=== PATIENT | male | born 1965 | race Caucasian/White ===

== ENCOUNTER 2019-11-30 13:23 | Outpatient (REF) | payer OTHER, SELFPAY ==
[2019-11-30 16:45] LABS: MANUAL DIFF FLAG NO
[2019-11-30 16:49] LABS: Basophils Percent Auto 0.4 % (0-2); Eosinophils Absolute Auto 0.4 X10*3/uL (0.0-0.4); Eosinophils Percent Auto 5.4 % (0-4); Hematocrit 44.2 % (42-52); Hemoglobin 14.7 g/dl (14.0-18.0); Imm Gran Abs Auto 0.02 X10*3/uL (0.00-0.03); Imm Gran Pct Auto 0.3 % (0.0-0.4); Lymphocytes Absolute Auto 3.2 X10*3/uL (1.2-4.9); Lymphocytes Percent Auto 47.4 % (20-40); Mean Corpuscular HGB Conc 33.3 g/dl (31.0-36.0); Mean Corpuscular Hemoglobin 29.5 pg (27.0-33.0); Mean Corpuscular Volume 88.6 fL (80-98); Mean Platelet Volume 11.2 fL (9.4-12.4); Monocytes Absolute Auto 0.5 X10*3/uL (0.1-1.2); Monocytes Percent Auto 7.7 % (2-11); Neutrophils Absolute Auto 2.6 X10*3/uL (2.0-8.3); Neutrophils Percent Auto 38.8 % (45-73); Platelet Count 264 X10*3/uL (160-400); Red Blood Count 4.99 X10*6/uL (4.60-5.80); Red Cell Distribution Width 14.3 % (11.0-16.0); White Blood Count 6.8 X10*3/uL (4.8-10.8)
[2019-11-30 17:14] LABS: Alanine Aminotransferase 20 U/L (0-40); Albumin Level 4.4 g/dL (3.5-5.0); Alkaline Phosphatase 53 U/L (39-117); Anion Gap 13 (12-20); Aspartate Amino Transferase 25 U/L (5-37); Bilirubin Total 0.4 mg/dL (0.0-1.0); Blood Urea Nitrogen 10 mg/dL (9-16); C Reactive Protein 0.03 mg/dL (< or = 0.50); Calcium 9.3 mg/dL (8.4-10.2); Carbon Dioxide 28 mmol/L (22-29); Chloride 100 mmol/L (96-108); Estimated Glomerular Filt Rate > 60; Glucose Random 91 mg/dL (60-115); Potassium 4.5 mmol/l (3.3-5.1); Sodium 136 mmol/L (135-145); Total Protein 7.1 g/dL (6.5-8.0)
[2019-11-30 17:57] LABS: Erythrocyte Sedimentation Rate 2 MM/HR (0-15)
== END 2019-11-30 13:24 | disposition home or self-care (01) ==
LOC: HO.HMGCLDS 13:23
PROVIDERS: PCP Internal Medicine; Visit Provider Internal Medicine
DX: A69.20 Lyme disease, unspecified (principal)
CPT/HCPCS: 36415; 80053; 85025; 85652; 86140; 86618

== ENCOUNTER 2020-01-30 12:30 | Outpatient (REF) | payer OTHER, SELFPAY ==
[2020-01-30 13:51] LABS: MANUAL DIFF FLAG NO
[2020-01-30 13:56] LABS: Basophils Percent Auto 0.2 % (0-2); Eosinophils Absolute Auto 0.2 X10*3/uL (0.0-0.4); Eosinophils Percent Auto 3.9 % (0-4); Hematocrit 42.8 % (42-52); Hemoglobin 14.6 g/dl (14.0-18.0); Lymphocytes Absolute Auto 2.3 X10*3/uL (1.2-4.9); Lymphocytes Percent Auto 50.9 % (20-40); Mean Corpuscular HGB Conc 34.1 g/dl (31.0-36.0); Mean Corpuscular Hemoglobin 29.4 pg (27.0-33.0); Mean Corpuscular Volume 86.3 fL (80-98); Mean Platelet Volume 10.5 fL (9.4-12.4); Monocytes Absolute Auto 0.5 X10*3/uL (0.1-1.2); Monocytes Percent Auto 10.4 % (2-11); Neutrophils Absolute Auto 1.6 X10*3/uL (2.0-8.3); Neutrophils Percent Auto 34.6 % (45-73); Platelet Count 256 X10*3/uL (160-400); Red Blood Count 4.96 X10*6/uL (4.60-5.80); Red Cell Distribution Width 13.3 % (11.0-16.0); White Blood Count 4.6 X10*3/uL (4.8-10.8)
[2020-01-30 14:30] LABS: Alanine Aminotransferase 22 U/L (0-40); Albumin Level 4.4 g/dL (3.5-5.0); Alkaline Phosphatase 43 U/L (39-117); Anion Gap 10 (12-20); Aspartate Amino Transferase 25 U/L (5-37); Bilirubin Total 0.3 mg/dL (0.0-1.0); Blood Urea Nitrogen 4 mg/dL (9-16); C Reactive Protein 2.18 mg/dL (< or = 0.50); Calcium 9.1 mg/dL (8.4-10.2); Carbon Dioxide 30 mmol/L (22-29); Chloride 98 mmol/L (96-108); Estimated Glomerular Filt Rate > 60; Glucose Random 71 mg/dL (60-115); Potassium 4.7 mmol/l (3.3-5.1); Sodium 133 mmol/L (135-145)
[2020-01-30 15:07] LABS: Erythrocyte Sedimentation Rate 10 MM/HR (0-15)
[2020-01-31 09:22] LABS: Lyme Blot 7.24 index
[2020-01-31 23:23] LABS: IgG P93 Abs NON-REACTIVE; Lyme IgG Line Blot Interp. NEGATIVE (NEGATIVE)
== END 2020-01-30 12:31 | disposition home or self-care (01) ==
LOC: HO.HMGCLDS 12:30
PROVIDERS: PCP Internal Medicine; Visit Provider Internal Medicine
DX: M25.50 Pain in unspecified joint (principal); A69.20 Lyme disease, unspecified
CPT/HCPCS: 36415; 80053; 85025; 85652; 86140; 86618; 87040

== ENCOUNTER 2020-05-29 12:01 | Outpatient (REF) | payer OTHER, SELFPAY ==
[2020-05-29 13:59] LABS: MANUAL DIFF FLAG NO
[2020-05-29 14:08] LABS: Basophils Percent Auto 0.3 % (0-2); Eosinophils Absolute Auto 0.2 X10*3/uL (0.0-0.4); Eosinophils Percent Auto 3.7 % (0-4); Hematocrit 46.4 % (42-52); Hemoglobin 15.4 g/dl (14.0-18.0); Imm Gran Abs Auto 0.01 X10*3/uL (0.00-0.03); Imm Gran Pct Auto 0.2 % (0.0-0.4); Lymphocytes Absolute Auto 2.7 X10*3/uL (1.2-4.9); Lymphocytes Percent Auto 43.3 % (20-40); Mean Corpuscular HGB Conc 33.2 g/dl (31.0-36.0); Mean Corpuscular Hemoglobin 29.1 pg (27.0-33.0); Mean Corpuscular Volume 87.7 fL (80-98); Mean Platelet Volume 10.9 fL (9.4-12.4); Monocytes Absolute Auto 0.5 X10*3/uL (0.1-1.2); Monocytes Percent Auto 8.4 % (2-11); Neutrophils Absolute Auto 2.7 X10*3/uL (2.0-8.3); Neutrophils Percent Auto 44.1 % (45-73); Platelet Count 257 X10*3/uL (160-400); Red Blood Count 5.29 X10*6/uL (4.60-5.80); Red Cell Distribution Width 13.5 % (11.0-16.0); White Blood Count 6.2 X10*3/uL (4.8-10.8)
[2020-05-29 14:23] LABS: Alanine Aminotransferase 14 U/L (0-40); Albumin Level 4.5 g/dL (3.5-5.0); Alkaline Phosphatase 48 U/L (39-117); Anion Gap 13 (12-20); Aspartate Amino Transferase 18 U/L (5-37); Bilirubin Total 0.5 mg/dL (0.0-1.0); Blood Urea Nitrogen 12 mg/dL (9-16); C Reactive Protein 0.05 mg/dL (< or = 0.50); Calcium 9.6 mg/dL (8.4-10.2); Carbon Dioxide 30 mmol/L (22-29); Chloride 99 mmol/L (96-108); Estimated Glomerular Filt Rate > 60; Glucose Random 92 mg/dL (60-115); Potassium 4.6 mmol/L (3.3-5.1); Sodium 137 mmol/L (135-145); Total Protein 7.2 g/dL (6.5-8.0)
[2020-05-29 15:12] LABS: Erythrocyte Sedimentation Rate 2 MM/HR (0-15)
[2020-05-30 06:42] LABS: Lyme Blot 6.26 index
[2020-06-02 14:26] LABS: 18 KD (IgG) Band NON-REACTIVE; 23 KD (IgG) Band NON-REACTIVE; 23 KD (IgM) Band REACTIVE; 28 KD (IgG) Band NON-REACTIVE; 30 KD (IgG) Band NON-REACTIVE; 39 KD (IgM) Band NON-REACTIVE; 41 KD (IgM) Band REACTIVE; 45 KD (IgG) Band NON-REACTIVE; 58 KD (IgG) Band REACTIVE; 66 KD (IgG) Band NON-REACTIVE; 93 KD (IgG) Band NON-REACTIVE; Lyme IgG Blot Interp NEGATIVE (NEGATIVE); Lyme IgM Blot Interp POSITIVE (NEGATIVE)
[2020-06-02 15:41] LABS: Babesia IgG <1:64 titer (<1:64); Babesia IgM <1:20 titer (<1:20)
[2020-06-02 23:12] LABS: A. Phagocytophilum Ab IgG <1:64 (<1:64); A. Phagocytophilum Ab IgM <1:20 (<1:20); E. Chaffeensis Ab IgG <1:64 (<1:64); E. Chaffeensis Ab IgM <1:20 (<1:20)
[2020-06-05 08:51] LABS: Lyme Abs Screen POSITIVE
== END 2020-05-29 12:02 | disposition home or self-care (01) ==
LOC: HO.HMGCLDS 12:01
PROVIDERS: Visit Provider Internal Medicine Infectious Disease
DX: R76.8 Other specified abnormal immunological findings in serum (principal)
CPT/HCPCS: 36415; 80053; 85025; 85652; 86140; 86617; 86618; 86666; 86753

== ENCOUNTER 2020-10-15 14:31 | Emergency (ER) | payer OTHER, SELFPAY ==
--- NOTE | ~2020-10-15 | CT_ITS ---
EXAMINATION: CT HEAD WITHOUT CONTRAST CLINICAL INFORMATION: Diplopia. COMPARISON: None TECHNIQUE: Contiguous axial imaging was performed from the skull base to vertex without intravenous administration of contrast. This CT examination was performed using dose optimization techniques as appropriate, variously including the following: *Automated exposure control *Adjustment of mA and/or kV according to patient size (this includes techniques or standardized protocols for targeted exams where dose is matched to indication/reason for exam; i.e. extremities or head) *Use of iterative reconstruction technique DLP: 654 mGy-cm FINDINGS: There is no evidence of acute intracranial hemorrhage or territorial infarction. No abnormal mass effect or midline shift is seen. Holt to white matter differentiation is well preserved. No extra-axial fluid collections are identified. The ventricles are normal in size. There is no abnormal attenuation within the brain parenchyma. The osseous structures and soft tissues are normal. The mastoid air cells and visualized portions of the paranasal sinuses are well aerated. CT/CT head/brain wo con IMPRESSION: No acute intracranial process seen.
[2020-10-15 14:37] VITALS: BP 162/92; PULSE 68; RESP 18; TEMP 36.6; O2SAT 97; BMI 23.3
--- NOTE | 2020-10-15 14:50 | ED.GENADULT ---
HPI - General Adult General Chief complaint: General Medical Stated complaint: double vision Time Seen by Provider: 10/15/20 14:50 Source: patient Mode of arrival: ambulatory Limitations: no limitations History of Present Illness HPI narrative: Patient no significant past medical history noticed sudden onset of double visions when he opens both eyes , disappears when see with single eye, started at 09:00 yesterday it happens when he tries to raise his head up and try to look down noticed double vision no headache no fever no chills no nausea no vomiting patient had history of Lyme disease last year and was treated also patient noticed mild headache on the left side Related Data Allergies Allergy/AdvReac Type Severity Reaction Status Date / Time No Known Allergies Allergy Unverified 11/08/19 18:39 [No Known Allergies*] Review of Systems Review of Systems: Yes all other systems are reviewed and are negative [facility] Social History Social History Advance Directives: No Advance Directives Information Provided: No Physical Exam Vital Signs: Vital Signs: Last Vital Signs Temp 98 F 10/15/20 14:37 Pulse 58 10/15/20 16:08 Resp 16 10/15/20 16:08 BP 147/88 H 10/15/20 16:08 Pulse Ox 97 10/15/20 16:08 Body Mass Index 23.3 Appearance: Alert. Oriented X3. No acute distress. Eyes: PERRLA, No Nystagmus fundus normal no papilledema, extraocular muscle intact ENT: Pharynx normal. Oral Mucosa moist Neck: Normal inspection. Neck supple. CVS: Normal heart rate and rhythm. Pulses normal. Respiratory: No respiratory distress. Equal air entry bilateral, no wheezing/rales/rhonchi Abdomen: Soft and nontender. Bowel sounds are present, no mass palpable, no CVA tenderness Skin: Skin warm and dry. Normal skin color. Normal skin turgor. Extremities: No lower extremity edema. No calf tenderness Neuro: Oriented X 3. No motor deficit. 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 Patient does have a history of Lyme disease. Case discussed with Dr. Brooks will see him in the outpatient Discharge Plan Discharge Clinical Impression: Diplopia Patient Disposition: Home, Self-Care Instructions: Diplopia (ED) Additional Instructions: Follow-up with eye clinic manager as advised likely you have eye muscle weakness Referrals: Dave Brooks [Physician] - 2 days Interventions: ED Discharge Assessment Last Done: 10/15/20 16:51
[2020-10-15 16:08] VITALS: BP 147/88; PULSE 58; RESP 16; O2SAT 97
--- NOTE | 2020-10-15 16:09 | PC.NURSE ---
pt reports double vision in lower field of vision. he states when he closes one eye the problem stops. Denies dizziness, no neausea. he has no other neuro defiits. He has no limb ataxia or drift. face is symmetrical. moving all extremities well.
== END 2020-10-15 17:00 | disposition home or self-care (01) ==
PROVIDERS: Emergency Provider Internal Medicine; PCP Internal Medicine
DX: H53.2 Diplopia (principal)
CPT/HCPCS: 70450; 99284

== ENCOUNTER 2020-11-03 16:15 | Outpatient (REF) | payer OTHER, SELFPAY ==
--- NOTE | ~2020-11-03 | MR_ITS ---
EXAMINATION: MR ANGIOGRAPHY HEAD CLINICAL INFORMATION: Cranial nerve disorder. Assess for aneurysm compressing the right 4th nerve. COMPARISON: CT scan of the head 10/15/2020. TECHNIQUE: 3D time of flight MR angiography of the intracranial vasculature was obtained. Reformatted images were generated at the technologist workstation and source images were reviewed along with rotating MIPs. FINDINGS: In the anterior circulation, the distal internal carotid arteries within the neck appear normal. The intracranial internal carotid arteries and their bifurcations appear normal. The middle and anterior cerebral arteries bilaterally demonstrate normal caliber with no evidence of focal stenosis, aneurysm or vascular malformation. The anterior communicating artery is normal. In the posterior circulation, the left vertebral artery is dominant. The vertebral arteries intradurally have normal caliber. The basilar artery appears normal. The right posterior cerebral artery has a thinner caliber compared to the left with slight irregularity in it's mid P2 section. The vessel is patent. MR/MR angio head wo con IMPRESSION: 1. There are no vascular malformations or aneurysms intracranially. The right posterior cerebral artery has a thinner caliber compared to the left with slight irregularity.
== END 2020-11-03 16:16 | disposition home or self-care (01) ==
LOC: HO.MRI 16:15
PROVIDERS: PCP Internal Medicine; Visit Provider Psychiatry & Neurology Neurology
DX: H53.2 Diplopia (principal); G52.9 Cranial nerve disorder, unspecified
CPT/HCPCS: 70544

== ENCOUNTER 2020-11-19 13:46 | Outpatient (REF) | payer OTHER, SELFPAY ==
[2020-11-19 16:39] LABS: MANUAL DIFF FLAG NO
[2020-11-19 16:45] LABS: Basophils Percent Auto 0.3 % (0-2); Eosinophils Absolute Auto 0.2 X10*3/uL (0.0-0.4); Eosinophils Percent Auto 2.6 % (0-4); Hematocrit 45.5 % (42-52); Hemoglobin 15.4 g/dl (14.0-18.0); Imm Gran Abs Auto 0.01 X10*3/uL (0.00-0.03); Imm Gran Pct Auto 0.2 % (0.0-0.4); Lymphocytes Absolute Auto 2.9 X10*3/uL (1.2-4.9); Lymphocytes Percent Auto 46.7 % (20-40); Mean Corpuscular HGB Conc 33.8 g/dl (31.0-36.0); Mean Corpuscular Hemoglobin 29.5 pg (27.0-33.0); Mean Corpuscular Volume 87.2 fL (80-98); Mean Platelet Volume 10.9 fL (9.4-12.4); Monocytes Absolute Auto 0.6 X10*3/uL (0.1-1.2); Monocytes Percent Auto 9.4 % (2-11); Neutrophils Absolute Auto 2.6 X10*3/uL (2.0-8.3); Neutrophils Percent Auto 40.8 % (45-73); Platelet Count 250 X10*3/uL (160-400); Red Blood Count 5.22 X10*6/uL (4.60-5.80); Red Cell Distribution Width 13.6 % (11.0-16.0); White Blood Count 6.3 X10*3/uL (4.8-10.8)
[2020-11-19 16:53] LABS: Anion Gap 13 (12-20); Blood Urea Nitrogen 12 mg/dL (9-16); Calcium 9.7 mg/dL (8.4-10.2); Carbon Dioxide 25 mmol/L (22-29); Chloride 103 mmol/L (96-108); Estimated Glomerular Filt Rate > 60; Potassium 4.4 mmol/L (3.3-5.1); Sodium 137 mmol/L (135-145)
[2020-11-19 16:59] LABS: Estimated Average Glucose 105 mg/dL; Hemoglobin A1c % 5.3 %
[2020-11-19 17:53] LABS: Erythrocyte Sedimentation Rate 2 MM/HR (0-15)
[2020-11-26 00:01] LABS: Acetylcholine Receptor Binding <0.30 nmol/L
[2020-12-04 22:06] LABS: Acetylcholine Recep Modulating 19
== END 2020-11-19 13:47 | disposition home or self-care (01) ==
LOC: HO.HMGCLDS 13:46
PROVIDERS: PCP Internal Medicine; Visit Provider Psychiatry & Neurology Neurology
DX: H53.2 Diplopia (principal)
CPT/HCPCS: 36415; 80051; 82310; 82565; 83036; 83519; 84520; 85025; 85652

== ENCOUNTER 2020-12-23 09:12 | Outpatient (REF) | payer OTHER, SELFPAY ==
[2020-12-23 11:25] LABS: MANUAL DIFF FLAG NO
[2020-12-23 11:36] LABS: Basophils Percent Auto 0.3 % (0-2); Eosinophils Absolute Auto 0.4 X10*3/uL (0.0-0.4); Eosinophils Percent Auto 6.8 % (0-4); Hematocrit 46.6 % (42.0-52.0); Hemoglobin 15.5 g/dl (14.0-18.0); Imm Gran Abs Auto 0.01 X10*3/uL (0.00-0.03); Imm Gran Pct Auto 0.2 % (0.0-0.4); Lymphocytes Absolute Auto 3.2 X10*3/uL (1.2-4.9); Lymphocytes Percent Auto 50.6 % (20-40); Mean Corpuscular HGB Conc 33.3 g/dl (31.0-36.0); Mean Corpuscular Hemoglobin 29.3 pg (27.0-33.0); Mean Corpuscular Volume 88.1 fL (80.0-98.0); Mean Platelet Volume 10.9 fL (9.4-12.4); Monocytes Absolute Auto 0.5 X10*3/uL (0.1-1.2); Monocytes Percent Auto 8.5 % (2-11); Neutrophils Absolute Auto 2.14 x10*3/uL (2.0-8.3); Neutrophils Percent Auto 33.6 % (45-73); Platelet Count 244 X10*3/uL (160-400); Red Blood Count 5.29 X10*6/uL (4.60-5.80); Red Cell Distribution Width 13.9 % (11.0-16.0); White Blood Count 6.4 X10*3/uL (4.8-10.8)
[2020-12-23 11:56] LABS: Alanine Aminotransferase 19 U/L (0-40); Albumin Level 4.2 g/dL (3.5-5.0); Alkaline Phosphatase 53 U/L (39-117); Anion Gap 8 (12-20); Aspartate Amino Transferase 23 U/L (5-37); Bilirubin Total 0.5 mg/dL (0.0-1.0); Blood Urea Nitrogen 10 mg/dL (9-16); Calcium 9.1 mg/dL (8.4-10.2); Carbon Dioxide 30 mmol/L (22-29); Chloride 106 mmol/L (96-108); Cholesterol 199 mg/dL; Estimated Glomerular Filt Rate > 60; Glucose Fasting 96 mg/dL (60-99); HDL Cholesterol 34 mg/dL; LDL Cholesterol Calculated 147 mg/dl; Potassium 4.6 mmol/L (3.3-5.1); Sodium 139 mmol/L (135-145); Total Protein 6.7 g/dL (6.5-8.0); Triglycerides 93 mg/dL
[2020-12-23 12:07] LABS: Thyroid Stimulating Hormone 2.31 uIU/mL (0.32-4.0); Vitamin D 25-OH Total 31.1 ng/mL (>30)
[2020-12-23 12:39] LABS: PSA,Total (Free>4and<10) 2.56 ng/mL (0.00-4.00)
== END 2020-12-23 09:13 | disposition home or self-care (01) ==
LOC: HO.HMGCLDS 09:12
PROVIDERS: PCP Internal Medicine; Visit Provider Internal Medicine
DX: Z00.00 Encounter for general adult medical examination without abnormal findings (principal); Z12.5 Encounter for screening for malignant neoplasm of prostate
CPT/HCPCS: 36415; 80053; 80061; 82306; 84153; 84443; 85025

== ENCOUNTER 2021-12-23 08:31 | Outpatient (REF) | payer OTHER, SELFPAY ==
[2021-12-23 12:01] LABS: Basophils Percent Auto 0.5 % (0-2); Eosinophils Absolute Auto 0.2 X10*3/uL (0.0-0.4); Eosinophils Percent Auto 3.2 % (0-4); Hematocrit 43.5 % (42.0-52.0); Hemoglobin 14.8 g/dl (14.0-18.0); Imm Gran Abs Auto 0.01 X10*3/uL (0.00-0.03); Imm Gran Pct Auto 0.2 % (0.0-0.4); Lymphocytes Absolute Auto 2.9 X10*3/uL (1.2-4.9); Lymphocytes Percent Auto 46.8 % (20-40); MANUAL DIFF FLAG NO; Mean Corpuscular Volume 88.1 fL (80.0-98.0); Mean Platelet Volume 10.8 fL (9.4-12.4); Monocytes Absolute Auto 0.5 X10*3/uL (0.1-1.2); Monocytes Percent Auto 7.5 % (2-11); Neutrophils Absolute Auto 2.6 x10*3/uL (2.0-8.3); Neutrophils Percent Auto 41.8 % (45-73); Platelet Count 270 X10*3/uL (160-400); Red Blood Count 4.94 X10*6/uL (4.60-5.80); Red Cell Distribution Width 13.9 % (11.0-16.0); White Blood Count 6.2 X10*3/uL (4.8-10.8)
[2021-12-23 12:03] LABS: Appearance Urine Clear; Color Urine Yellow; Glucose Urine UA Negative (Negative); Leukocyte Esterase Urine Negative (Negative); Nitrite Urine Negative (Negative); Specific Gravity - Urine <= 1.005 (1.005-1.025); Urine Blood Negative (Negative); Urine Ketones Negative (Negative); Urine Protein Negative (Neg-Trace)
[2021-12-23 12:09] LABS: Bacteria Urine None Seen (None Seen); Hyaline Casts Urine 0-2 /LPF (0-2); RBC Urine 0-2 /HPF (0-2); Squamous Epithelial Cell Urine 0-2 /HPF (0-2); WBC Urine 0-5 /HPF (0-5)
[2021-12-23 12:32] LABS: Alanine Aminotransferase 16 U/L (0-40); Albumin Level 4.2 g/dL (3.5-5.0); Alkaline Phosphatase 47 U/L (39-117); Anion Gap 13 (12-20); Aspartate Amino Transferase 19 U/L (5-37); Bilirubin Total 0.3 mg/dL (0.0-1.0); Blood Urea Nitrogen 11 mg/dL (9-16); Carbon Dioxide 27 mmol/L (22-29); Chloride 103 mmol/L (96-108); Cholesterol 213 mg/dL; Estimated Glomerular Filt Rate > 60; Glucose Fasting 98 mg/dL (60-99); HDL Cholesterol 47 mg/dL; LDL Cholesterol Calculated 155 mg/dl; Potassium 4.1 mmol/L (3.3-5.1); Sodium 139 mmol/L (135-145); Total Protein 6.7 g/dL (6.5-8.0); Triglycerides 57 mg/dL
[2021-12-23 12:42] LABS: PSA,Total (Free>4and<10) 3.31 ng/mL (0.00-4.00); Thyroid Stimulating Hormone 2.49 uIU/mL (0.32-4.0); Vitamin D 25-OH Total 35.8 ng/mL (>30)
== END 2021-12-23 08:32 | disposition home or self-care (01) ==
LOC: HO.HMGCLDS 08:31
PROVIDERS: PCP Internal Medicine; Visit Provider Internal Medicine
DX: Z00.00 Encounter for general adult medical examination without abnormal findings (principal); Z12.5 Encounter for screening for malignant neoplasm of prostate; M25.562 Pain in left knee
CPT/HCPCS: 36415; 80053; 80061; 81001; 82306; 84153; 84443; 85025

== ENCOUNTER 2022-01-20 08:09 | Outpatient (REF) | payer OTHER, SELFPAY ==
--- NOTE | ~2022-01-20 | XR_ITS ---
EXAMINATION: XR KNEE, STANDING BILATERAL XR KNEE, LEFT CLINICAL INFORMATION: Left knee pain. COMPARISON: None. TECHNIQUE: Standing AP view of the bilateral knees, lateral and patellar views of the left knee. FINDINGS: Osseous mineralization is normal. Medial and lateral knee joint spaces appear to be preserved. No evidence of subarticular sclerosis or cystic changes. Left patellofemoral joint space appears to be preserved. No evidence of left suprapatellar joint effusion. No evidence of soft tissue calcifications. The bones essentially appear normal. XR/XR knee standing BI IMPRESSION: No acute or other significant osseous abnormalities are noted on the radiographs of the bilateral knees.
--- NOTE | ~2022-01-20 | XR_ITS ---
EXAMINATION: XR KNEE, STANDING BILATERAL XR KNEE, LEFT CLINICAL INFORMATION: Left knee pain. COMPARISON: None. TECHNIQUE: Standing AP view of the bilateral knees, lateral and patellar views of the left knee. FINDINGS: Osseous mineralization is normal. Medial and lateral knee joint spaces appear to be preserved. No evidence of subarticular sclerosis or cystic changes. Left patellofemoral joint space appears to be preserved. No evidence of left suprapatellar joint effusion. No evidence of soft tissue calcifications. The bones essentially appear normal. XR/XR knee LT 2V IMPRESSION: No acute or other significant osseous abnormalities are noted on the radiographs of the bilateral knees.
== END 2022-01-20 08:10 | disposition home or self-care (01) ==
LOC: HO.HOSX 08:09
PROVIDERS: Visit Provider Physician Assistant
DX: M17.12 Unilateral primary osteoarthritis, left knee (principal)
CPT/HCPCS: 73560; 73565; 99202

== ENCOUNTER 2022-02-24 14:07 | Outpatient (REF) | payer OTHER, SELFPAY ==
--- NOTE | ~2022-02-24 | XR_ITS ---
EXAMINATION: XR lumbar spine 4V min CLINICAL INFORMATION: Right-sided low back pain COMPARISON: None TECHNIQUE: Bilateral oblique, AP and lateral views of the lumbar spine with an additional coned down lateral spot view of the lumbosacral junction. FINDINGS: There is transitional lumbosacral anatomy. There are 4 nonrib-bearing lumbar type vertebral bodies. The next segment is partially sacralized on the left with a prominent transverse process that forms a pseudoarthrosis with the sacrum. Normal sagittal alignment. Mild loss of disc height and anterior osteophytosis in the lower lumbar spine. Trace loss of disc height at L4-L5 and L5-S1. Lower lumbar facet arthropathy. No pars defects. XR/XR lumbar spine 4V min IMPRESSION: Degenerative changes and transitional anatomy as described above.
== END 2022-02-24 14:08 | disposition home or self-care (01) ==
LOC: HO.HMGCX 14:07
PROVIDERS: PCP Physical Medicine & Rehabilitation; Visit Provider Student in an Organized Health Care Education/Training Program
DX: M54.50 Low back pain, unspecified (principal)
CPT/HCPCS: 72110

== ENCOUNTER 2022-04-13 14:00 | Outpatient (RCR) | payer OTHER, SELFPAY | END 2022-08-03 09:33 | disposition home or self-care (01) | LOC: HO.PTCHIC 14:00 | PROVIDERS: PCP Internal Medicine; Visit Provider Student in an Organized Health Care Education/Training Program | DX: M17.12 Unilateral primary osteoarthritis, left knee (principal); M54.50 Low back pain, unspecified | CPT/HCPCS: 97110; 97140; 97161 ==

== ENCOUNTER 2022-12-27 08:54 | Outpatient (REF) | payer OTHER, SELFPAY ==
[2022-12-27 11:17] LABS: Basophils Percent Auto 0.3 % (0-2); Eosinophils Absolute Auto 0.2 X10*3/uL (0.0-0.4); Eosinophils Percent Auto 3.2 % (0-4); Hemoglobin 15.9 g/dl (14.0-18.0); Imm Gran Abs Auto 0.01 X10*3/uL (0.00-0.03); Imm Gran Pct Auto 0.2 % (0.0-0.4); Lymphocytes Absolute Auto 2.5 X10*3/uL (1.2-4.9); Lymphocytes Percent Auto 41.2 % (20-40); MANUAL DIFF FLAG NO; Mean Corpuscular HGB Conc 33.8 g/dl (31.0-36.0); Mean Corpuscular Hemoglobin 29.9 pg (27.0-33.0); Mean Corpuscular Volume 88.3 fL (80.0-98.0); Mean Platelet Volume 10.6 fL (9.4-12.4); Monocytes Absolute Auto 0.5 X10*3/uL (0.1-1.2); Monocytes Percent Auto 8.8 % (2-11); Neutrophils Absolute Auto 2.8 x10*3/uL (2.0-8.3); Neutrophils Percent Auto 46.3 % (45-73); Platelet Count 247 X10*3/uL (160-400); Red Blood Count 5.32 X10*6/uL (4.60-5.80); Red Cell Distribution Width 13.6 % (11.0-16.0)
[2022-12-27 11:51] LABS: Alanine Aminotransferase 14 U/L (0-40); Albumin Level 4.2 g/dL (3.5-5.0); Alkaline Phosphatase 50 U/L (39-117); Anion Gap 10 (12-20); Aspartate Amino Transferase 20 U/L (5-37); Bilirubin Total 0.4 mg/dL (0.0-1.0); Blood Urea Nitrogen 12 mg/dL (9-16); Calcium 9.5 mg/dL (8.4-10.2); Carbon Dioxide 28 mmol/L (22-29); Chloride 105 mmol/L (96-108); Cholesterol 188 mg/dL (<200); Estimated Glomerular Filt Rate > 60; Glucose Fasting 96 mg/dL (60-99); HDL Cholesterol 44 mg/dL (>40); LDL Cholesterol Calculated 132 mg/dL (<100); Potassium 4.2 mmol/L (3.3-5.1); Sodium 139 mmol/L (135-145); Thyroid Stimulating Hormone 1.86 uIU/mL (0.32-4.0); Total Protein 6.9 g/dL (6.5-8.0); Triglycerides 63 mg/dL (<150)
== END 2022-12-27 08:55 | disposition home or self-care (01) ==
LOC: HO.HMGCLDS 08:54
PROVIDERS: PCP Internal Medicine; Visit Provider Internal Medicine
DX: Z00.00 Encounter for general adult medical examination without abnormal findings (principal)
CPT/HCPCS: 36415; 80053; 80061; 84443; 85025

== ENCOUNTER 2023-02-01 14:00 | Outpatient (RCR) | payer OTHER, SELFPAY | END 2023-03-04 07:18 | disposition home or self-care (01) | LOC: HO.PTCHIC 14:00 | PROVIDERS: PCP Internal Medicine; Visit Provider Internal Medicine | DX: M25.50 Pain in unspecified joint (principal) | CPT/HCPCS: 97110; 97161 ==

== ENCOUNTER 2023-04-26 14:53 | Outpatient (AMB) | payer OTHER, SELFPAY ==
--- NOTE | 2023-04-26 15:02 | A.OFFVIS_ITS ---
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 He states that he underwent repair the age of 14. Around 1979. He states he has not seen Cardiology know why. Used to go to [facility]. According to him, he is generally doing fine. No complaints like angina or shortness of breath or in fact anything cardiac sounding. He gets along okay. In 2013, he was admitted to [facility] with suspected in fact endocarditis and after that, it seems that he was transferred to [facility]. Apparently, got antibiotics for several weeks and then got better. Has not seen anyone in Cardiology for f ollow-up after that. [facility] Medical History (Updated 04/26/23 @ 16:10 by Doc Krause MD) VSD (ventricular septal defect) Surgical History (Updated 04/26/23 @ 15:16 by Doc Krause MD) S/P TOF (tetralogy of Fallot) repair History of open heart surgery Family History (Updated 04/26/23 @ 15:05 by Kaley Galan) Mother Heart attack Father No problems noted. Social History Patient Tobacco Use Status: Never used Tobacco Current occupational status: employed Current occupation: self employed, rt hand Review of Systems Const Denies chills, Denies daytime sleepiness, Denies fatigue, Denies fever(s), Denies frequent falls, Denies night sweats, Denies snoring, Denies weakness, Denies weight gain and Denies weight loss Eyes Denies loss of vision ENT Denies dizziness and Denies hearing loss Card Denies chest pain, Denies chest pain with activity, Denies syncope, Denies rapid heart rate, Denies edema, Denies claudication, Denies leg edema, Denies lightheadedness, Denies palpitations, Denies dyspnea, Denies dyspnea on exertion and Denies orthopnea Resp Denies cough, Denies excessive phlegm production, Denies dyspnea, Denies dyspnea on exertion, Denies snoring and Denies wheezing GI Denies abdominal pain, Denies hematochezia, Denies change in bowel habits, Denies change in stool character, Denies heartburn, Denies nausea and Denies vomiting Denies hematuria, Denies dysuria and Denies urinary frequency Musc Denies arthralgias, Denies muscle weakness, Denies numbness and Denies tingling Skin/Breast Denies nail changes and Denies rash Neuro Denies Abnormal speech present, Denies dizziness, Denies syncope, Denies frequent falls, Denies loss of vision, Denies memory loss, Denies numbness, Denies tingling and Denies weakness Psych Denies depression and Denies memory loss Endo Denies fatigue and Denies palpitations Aller/Immun Denies wheezing Physical Exam Vital Signs: Last Vital Signs Pulse 59 04/26/23 15:04 BP 126/96 H 04/26/23 15:04 BMI result Body Mass Index 24.1 Const General: comfortable and no acute distress Orientation/consciousness: patient oriented x3 HEENT Other: Unremarkable Head: Yes normal to inspection Neck Neck: Yes normal visual inspection Chest Chest palpation & inspection: normal inspection of the chest Resp Auscultation: clear to auscultation bilaterally Cardio Palpation: normal PMI Heart sounds: S1 normal heart sound present, S2 normal heart sound present, no gallops, Murmur heart sound present systolic III/ and at the left sternal border and no rubs GI Palpation (GI): Soft to palpation Back/Spine/Pelvis Other: unremarkable Skin General skin exam: no rashes or lesions noted Neuro General: patient oriented x3 Speech: No Abnormal speech present Extrem General: Yes normal to inspection Psych Mental Status: mental status grossly normal Office Procedures EKG Details: EKG with sinus bradycardia at 59/Min; ND prolongation to 220 millisecond; right bundle-branch block pattern. [id number]-[id number], Complete Assessment & Plan Assessment & Plan (1) S/P TOF (tetralogy of Fallot) repair: Code(s): Z87.74 - Personal history of (corrected) congenital malformations of heart and circulatory system (2) VSD (ventricular septal defect): Code(s): Q21.0 - Ventricular septal defect Plan History of corrected tetralogy of Fallot, residual ventricular septal defect; endocarditis in 2013. Will need to get records from [facility]. We will repeat his echocardiogram, looking for any pulmonary valve regurgitation and other abnormalities. Otherwise, in fact endocarditis prophylaxis before any dental procedures. Follow-up in a few weeks' time. Also advised him that he should see somebody in adult Congenital heart Disease from [facility] regularly. Orders: Orders CA echo transthoracic complete Today I27.20 - Pulmonary hypertension, unspecified, Q21.0 - Ventricular septal defect, Z87.74 - Personal history of (corrected) congenital malformations of heart and circulatory system Coding Level of Care Code New Pt Level 3 (05556) Diagnoses S/P TOF (tetralogy of Fallot) repair Z87.74 VSD (ventricular septal defect) Q21.0 CPT Codes EKG - CPT: 48772-[id number], Complete ([id number])
[2023-04-26 15:04] VITALS: BP 126/96; PULSE 59; BMI 24.1
== END 2023-04-26 15:33 | disposition home or self-care (01) ==
PROVIDERS: PCP Internal Medicine; Visit Provider Internal Medicine
DX: Z87.74 Personal history of (corrected) congenital malformations of heart and circulatory system (principal); Q21.0 Ventricular septal defect
CPT/HCPCS: 93010; 99203

== ENCOUNTER → 2023-04-26 14:53 | Outpatient (BNVA) | payer OTHER, SELFPAY | PROVIDERS: PCP Internal Medicine; Visit Provider Internal Medicine | DX: Q21.0 Ventricular septal defect (principal); Z87.74 Personal history of (corrected) congenital malformations of heart and circulatory system | CPT/HCPCS: 93005; 99202 ==

== ENCOUNTER → 2023-05-18 13:50 | Outpatient (REF) | payer OTHER, SELFPAY ==
--- NOTE | 2023-05-18 13:53 | CA_ITS ---
Transthoracic Echocardiogram Patient (Last, First, Middle): Faraz Mcrae, Gender: Male Date of : 1965 Age: 57 Procedure Date: 05/18/2023 Procedure Type: Transthoracic Echocardiogram Location: OP Height: 165.1 cm Weight: 63.5 kg BSA: 1.70 m2 Heart Rate: 55 bpm BP: 128 / 84 mmHg Mower Operator: HEATHER Referring MD: Doc Krause MD Metal Model Builder: Omar Lubin MD Symptoms: Z87.74 - Personal history of (corrected) congenital malformations of hea... Study Quality: Adequate ECG Rhythm: Bradycardia Conclusions: - 1. Normal LV ejection fraction of 60 65% 2. Upper limits of normal RV size with paao-rj-wvtdoxjz RV systolic dysfunction 3. Xafv-ky-mbnagqnl pulmonary regurgitation with mild pulmonic stenosis with peak gradient of 20 mmHg 4. Mild tricuspid regurgitation with upper limits of normal RV systolic pressure 5. No gross pericardial effusion Findings Left Ventricle Normal left ventricular size, thickness, and systolic function. The visually estimated ejection fraction is between 60-65%. Spectral Doppler is indicative of a normal filling pattern. Right Ventricle Normal right ventricular cavity size. There is mild to moderately decreased right ventricular systolic function. Atria The left atrium is normal in size. There is no evidence of interatrial shunt. The right atrium is likely dilated. Aortic Valve There is mild calcification of the aortic valve. There is mild thickening of the aortic valve. There is no aortic valve stenosis. There is no aortic valve regurgitation. Mitral Valve Normal mitral valve structure and function. There is trace mitral valve regurgitation. There is no mitral valve stenosis. Pulmonic Valve The pulmonic valve was not well visualized. There is mild to moderate pulmonic valve regurgitation. There is mild stenosis. Tricuspid Valve Normal tricuspid valve structure. There is mild tricuspid valve regurgitation. Normal right atrial pressure. There is no evidence of pulmonary hypertension. Great Vessels All visible segments of the aorta are normal in size. The pulmonary artery was not well visualized. Venous The inferior vena cava is normal in size and collapses greater than 50% with inspiration. Pericardium/Pleural There is no evidence of pericardial effusion. Prior Study Comparison no previous sudden last 5 years for comparison Measurements 2D Linear Measurements IVSd: 0.64 0.6-0.9/0.6-1.0 cm LVIDd: 5.11 3.9-5.3/4.2-5.9 cm LVIDd Index: 3.01 2.4-3.2/2.2-3.1 cm/m2 LVIDs: 2.78 2.0-3.6 cm LVPWd: 0.82 0.7-1.1 cm LA Diam: 4.70 2.7-3.8/3.0-4.0 cm LAIDs Index: 2.76 1.5-2.3 cm/m2 LV Mass: 156.03 67-162/88-224 g LV Mass Index: 91.78 43-95/49-115 g/m2 LVOT Diam: 3.30 3.0+(-)1.3 cm 2D Systolic Function EF 4C: 57.60 >55% EF 2C: 64.40 >55% EF BiP: 61.20 >55% Mitral Valve MV Pk E: 0.69 MV PK A: 0.48 MV Decel Time: 222.00 E/A: 1.40 E'Lateral: 11.10 E'Medial: 4.46 E/E' Med: 15.40 E/E' Lat: 6.20 Aortic Valve AoV Pk Chris: 0.97 AoV Mn Chris: 0.70 AoV VTI: 0.21 AoV Pk Grad: 4.00 Aov Mn Grad: 2.00 GILDA Cont.VTI: 6.68 LVOT LVOT Pk Chris: 0.79 LVOT Mn Chris: 0.52 LVOT VTI: 0.16 LVOT Pk Grad: 3.00 LVOT Mn Grad: 1.00 LVOT Diam: 3.30 LVOT Area: 8.55 Diastolic Function MV Pk E: 0.69 MV Pk A: 0.48 E/A: 1.40 E'Medial: 4.46 E/E' Med: 15.40 E' Laterial: 11.10 E/E' Lat: 6.20 Right Ventricle TAPSE (mm): 14.20 TVS' Chris: 9.60 Tricuspid Valve TR Pk Chris: 2.91 TR Pk Grad: 34.00 RA Press: 3.00 RVSP: 37.00 Great Vessels Aorta Sinus of Valsalva: 3.60 2.0-3.5 cm Ao Asc: 3.20 2.1-3.4 cm Pulmonary Valve PV Pk Chris: 2.23 PV Min Chris: 1.53 Peak PV Grad: 20.00 PV Mn Grad: 11.00 LA Pk Chris: 2.12 Updated in Other Vendor System with Status of Final Omar Lubin MD electronically signed on 05/19/2023 11:23:30 AM with status of Final
== END ==
LOC: HO.CARD 13:50
PROVIDERS: PCP Internal Medicine; Visit Provider Internal Medicine
DX: I27.20 Pulmonary hypertension, unspecified (principal); Q21.0 Ventricular septal defect; Z87.74 Personal history of (corrected) congenital malformations of heart and circulatory system
CPT/HCPCS: 93306

== ENCOUNTER → 2023-05-18 13:53 | Outpatient (BNV) | payer OTHER, SELFPAY | PROVIDERS: PCP Internal Medicine; Visit Provider Internal Medicine Cardiovascular Disease | DX: I36.1 Nonrheumatic tricuspid (valve) insufficiency (principal); I37.2 Nonrheumatic pulmonary valve stenosis with insufficiency; Z87.74 Personal history of (corrected) congenital malformations of heart and circulatory system | CPT/HCPCS: 93306 ==

== ENCOUNTER 2023-07-21 13:44 | Outpatient (AMB) | payer OTHER, SELFPAY ==
--- NOTE | 2023-07-21 13:45 | A.OFFVIS_ITS ---
Vital Signs 07/21/23 13:46 Height 5 ft 5 in Weight 143 lb 4.807 oz BMI 23.8 BP 124/82 Blood Pressure Location Lt brachial Position Sitting Pulse 62 Intake Visit Reasons: f/up echo and records Intake Note: Follow-up after echo feeling good Human Anatomy Teacher Required: No Allergies No Known Allergies [No Known Allergies*] Allergy (Verified 04/26/23 15:04) Medication List - Last Reconciled 07/21/23 by Doc Krause MD No Known Home Meds HPI Comments Details: Faraz returns for follow-up. Recently seen in consultation regarding congenital heart disease. Available records from [facility] reviewed. 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 Predominant esos-hx-clsoi shunt through the VSD. Subsequently, in the same here 1979, he underwent elective repair. He recovered well and then he was discharged. After that, it seems that he was intermittently seen at [facility] but nothing recently. He states he is feeling quite good and has got absolutely no symptoms. In 2013, he was admitted to [facility] with suspected in fact endocarditis and after that, it seems that he was transferred to [facility]. At that time, he underwent an echocardiogram that showed a small to moderate residual VSD and mild LV dilatation. There was mild RV outflow tract obstruction and mild CT. There was also moderate dilatation of aortic root and ascending aorta. This was followed by an MRI that showed a moderately dilated aortic root and mildly dilated ascending aorta. Normal RV size/function; normal LV size/function. Small residual VSD with htmm-gq-arvno shunting with QP/QS ratio 1.37/1. Exercise stress test showed normal peak workload. Patient has not seen anyone in [facility] for many years. Otherwise, he feels well with no symptoms. [facility] Medical History (Updated 04/26/23 @ 16:10 by Doc Krause MD) VSD (ventricular septal defect) Surgical History (Updated 04/26/23 @ 15:16 by Doc Krause MD) S/P TOF (tetralogy of Fallot) repair History of open heart surgery Family History (Updated 04/26/23 @ 15:05 by Kaley Galan) Mother Heart attack Father No problems noted. Social History Patient Tobacco Use Status: Never used Tobacco Current occupational status: employed Current occupation: self employed, rt hand Review of Systems Const Denies chills, Denies fatigue, Denies fever(s), Denies frequent falls, Denies weakness, Denies weight gain and Denies weight loss ENT Denies dizziness Card Denies chest pain, Denies leg edema, Denies lightheadedness, Denies palpitations, Denies dyspnea, Denies dyspnea on exertion, Denies orthopnea and Denies other (loss of consciousness) Resp Denies cough, Denies dyspnea and Denies dyspnea on exertion GI Denies hematochezia and Denies change in stool character Musc Denies abnormal gait, Denies muscle weakness, Denies numbness, Denies radiating pain into limb and Denies tingling Neuro Denies Abnormal speech present, Denies abnormal gait, Denies dizziness, Denies frequent falls, Denies numbness, Denies tingling and Denies weakness Endo Denies fatigue and Denies palpitations Physical Exam Vital Signs: Last Vital Signs Pulse 62 07/21/23 13:46 BP 124/82 07/21/23 13:46 BMI result Body Mass Index 23.8 Const General: comfortable and no acute distress Orientation/consciousness: patient oriented x3 HEENT Other: Unremarkable Head: Yes normal to inspection Neck Neck: Yes normal visual inspection Chest Chest palpation & inspection: normal inspection of the chest Resp Auscultation: clear to auscultation bilaterally Cardio Palpation: normal PMI Heart sounds: S1 normal heart sound present, S2 normal heart sound present, no gallops, Murmur heart sound present systolic III/ and at the left sternal bor parvez and no rubs GI Palpation (GI): Soft to palpation Back/Spine/Pelvis Other: unremarkable Skin General skin exam: no rashes or lesions noted Neuro General: patient oriented x3 Speech: No Abnormal speech present Extrem General: Yes normal to inspection Psych Mental Status: mental status grossly normal Assessment & Plan Assessment & Plan (1) S/P TOF (tetralogy of Fallot) repair: Code(s): Z87.74 - Personal history of (corrected) congenital malformations of heart and circulatory system Category: Surgical (2) VSD (ventricular septal defect): Code(s): Q21.0 - Ventricular septal defect Category: Medical Plan History of corrected tetralogy of Fallot, residual ventricular septal defect; endocarditis in 2014. Per last note from [facility], cardiac MRI in 2015 had shown normal biventricular size and function with a small residual VSD and oggr-fi-gxtnd shunt. Moderately dilated aortic root and mildly dilated ascending aorta. Normal workload on exercise testing. In the most recent echocardiogram from last month, LVEF 60-60%; mild to moderately decreased right ventricular systolic function; nlll-ur-refgymbw pulmonary regurgitation with increased gradients of 20 mm Hg-? Mild stenosis. Upper normal RV systolic pressure. It is reasonable to get another cardiac MRI as it has been many years. As he has got absolutely no symptoms, do not see any urgency doing this and can be completed before next visit. With a history of endocarditis, he will require infective endocarditis prophylaxis before any dental work. Follow-up in a year. He prefers not to go back to [facility] mainly due to convenience. Coding Level of Care Code Est Pt Level 4 (40953) Diagnoses S/P TOF (tetralogy of Fallot) repair Z87.74 VSD (ventricular septal defect) Q21.0
[2023-07-21 13:46] VITALS: BP 124/82; PULSE 62; BMI 23.8
== END 2023-07-21 14:10 | disposition home or self-care (01) ==
PROVIDERS: PCP Internal Medicine; Visit Provider Internal Medicine
DX: Z87.74 Personal history of (corrected) congenital malformations of heart and circulatory system (principal); Q21.0 Ventricular septal defect
CPT/HCPCS: 99214

== ENCOUNTER → 2023-07-21 13:44 | Outpatient (BNVA) | payer OTHER, SELFPAY | PROVIDERS: PCP Internal Medicine; Visit Provider Internal Medicine | DX: Q21.0 Ventricular septal defect (principal); Z87.74 Personal history of (corrected) congenital malformations of heart and circulatory system | CPT/HCPCS: 99212 ==